=== PATIENT | female | born 1955 | race Caucasian/White ===

== ENCOUNTER 2020-06-18 13:35 | Outpatient (CLI) | payer MEDICARE, SELFPAY ==
--- NOTE | ~2020-06-18 | XR_ITS ---
XR knee LT 3V 06/18/2020 14:00 Indication: Left knee pain Procedure: 3 views left knee Comparison: No prior studies for comparison. Findings: No fracture or traumatic malalignment. No significant joint effusion. No radiopaque foreign bodies. There is mild osteoarthritis. Impression: 1: Mild osteoarthritis of the left knee. Reviewed, dictated and finalized at location A. Impression: 1: Mild osteoarthritis of the left knee.
== END 2020-06-18 13:36 | disposition home or self-care (01) ==
LOC: CHSIMG 13:37
PROVIDERS: PCP Internal Medicine; Visit Provider Internal Medicine
DX: M25.562 Pain in left knee (principal)
CPT/HCPCS: 73562

== ENCOUNTER 2020-09-29 14:20 | Outpatient (CLI) | payer MEDICARE, SELFPAY ==
[2020-09-29 14:55] LABS: SARS-CoV-2 Ag Positive (Negative)
== END 2020-09-29 14:21 | disposition home or self-care (01) ==
LOC: CHSLAB 14:23
PROVIDERS: PCP Internal Medicine; Visit Provider Internal Medicine
DX: U07.1 COVID-19 (principal)
CPT/HCPCS: 87426; C9803

== ENCOUNTER 2021-01-02 14:20 | Emergency (ER) | payer MEDICARE, SELFPAY ==
--- NOTE | ~2021-01-02 | XR_ITS ---
EXAMINATION: XR chest 2V DATE: 01/02/2021 15:41 INDICATION: Shortness of breath with exertion TECHNIQUE: PA and lateral views of the chest are obtained. COMPARISON: None available FINDINGS: There are small pleural effusions. Airspace opacities are present in the mid and lower lung zones. There is a mild interstitial pattern. Cardiomegaly is noted. There is moderate thoracic spond ylosis. No pneumothorax is identified. IMPRESSION: 1. Cardiomegaly with mild pulmonary edema. 2. Small pleural effusions. 3. Minimal bibasilar airspace opacities, consistent with atelectasis versus pneumonia. Reviewed, dictated and finalized at location A. IMPRESSION: 1. Cardiomegaly with mild pulmonary edema. 2. Small pleural effusions. 3. Minimal bibasilar airspace opacities, consistent with atelectasis versus pne umonia.
[2021-01-02 14:30] VITALS: BP 127/95; PULSE 91; RESP 18; TEMP 36.6; O2SAT 98
--- NOTE | 2021-01-02 15:01 | ECG_ITS ---
Measurements Intervals [place] Rate: 96 P: 86 MO: 157 QRS: -16 QRSD: 125 T: 85 QT: 340 QTc: 431 Interpretive Statements SINUS RHYTHM VENTRICULAR PREMATURE COMPLEX POSSIBLE LEFT ATRIAL ENLARGEMENT LEFT BUNDLE BRANCH BLOCK BASELINE ARTIFACT- I, II, III, AVR, AVL, AVF, V1-V4 ABNORMAL ECG Electronically Signed On 01-03-2021 8:04:16 CDT by Konrad Escobar D.O.
[2021-01-02 15:30] LABS: D Dimer 0.42 mg/L (0.19-0.50)
[2021-01-02 15:34] LABS: BNP 1140 pg/mL (0-100); Troponin I 7.6 ng/L (0.00-60.4)
--- NOTE | 2021-01-02 16:25 | ED.SOB ---
HPI - SOB/Dyspnea General Chief Complaint: Upper Respiratory Infection Stated Complaint: SOB Time Seen by Provider: 01/02/21 14:40 Source: patient Mode of arrival: ambulatory Limitations: no limitations History of Present Illness HPI Narrative: Patient comes in stating she has been increasingly short of breath over the past few weeks. This seems to have gotten worse over the past couple of days. She denies fever and chills. She has had a clear productive cough and has had clear nasal discharge. She had covid in September. Shortness of breath has been moderately severe and ongoing getting worse as time progress. Shortness of breath is worse after walking. She denies chest pain, and any leg sweling. MD elicited complaint: shortness of breath Onset (ago): week(s) Context: occurred during exertion Timing: intermittent Severity: moderate Exacerbating factors: movement Associated symptoms: denies other symptoms Related Data Home Medications Medication Instructions Recorded Confirmed No Home Medications 01/02/21 01/02/21 Allergies Allergy/AdvReac Type Severity Reaction Status Date / Time No Known Allergies Allergy Verified 01/02/21 16:00 Review of Systems Constitutional: Constitutional: Reports no additional constitutional complaints Eyes: Eyes: Reports no additional eye complaints ENT: Reports system reviewed and no additional complaints, except as documented Cardiovascular: Cardiovascular: Reports no additional cardiovascular complaints Respiratory: Respiratory: Reports no additional respiratory complaints Gastrointestinal: Gastrointestinal: Reports no additional gastrointestinal complaints Genitourinary: Genitourinary: Reports no additional female genitourinary complaints Musculoskeletal: Musculoskeletal: Reports no additional musculoskeletal complaints Integumentary/Breasts: Skin/Breast: Reports system reviewed and no additional complaints, except as docu Neurologic: Reports system reviewed and no additional complaints, except as documented Psychiatric: Psychiatric: Reports no additional psychiatric complaints Endocrine: Endocrine: Reports no additional endocrine complaints Hematologic/Lymphatic: Hematologic/Lymphatic: Reports no additional hematologic/lymphatic complaints Allergic/Immunologic: Allergic/Immunologic: Reports no additional allergic/immunologic complaints [facility] Past Medical History Medical History (Updated 01/02/21 @ 20:01 by Roger Lange MD) Borderline diabetes Surgical History Surgical History (Updated 01/02/21 @ 20:02 by Roger Lange MD) H/O wrist surgery H/O: hysterectomy Hx of appendectomy Hx of tonsillectomy Family History Family History (Updated 01/02/21 @ 20:03 by Roger Lange MD) Father Diabetes mellitus COPD (chronic obstructive pulmonary disease) Social History Social History (Updated 01/02/21 @ 20:04 by Roger Lange MD) Smoking status: Never smoker Alcohol intake: never Sexual Orientation (if Verbalized by the Patient): Straight or Heterosexual Exam Const: General: no acute distress Orientation/consciousness: patient oriented x3 HENMT: Head: normal to inspection Ears: external ears normal and TM's normal bilaterally General nose exam: Nasal discharge present (clear thin) Face and sinus: normal facial exam Mouth: Yes Normal oral and palatal mucosa present Throat: posterior oropharynx normal Eyes: Conjunctivae: conjunctivae normal Neck: Neck: normal visual inspection Chest: Chest palpation & inspection: normal inspection of the chest Resp: Effort & Inspection: normal respiratory effort Auscultation: clear to auscultation bilaterally Cardio: Rate: regular rate Rhythm: regular rhythm GI: GI Palp: Yes Soft to palpation (nontender) Skin: General skin exam: normal color Neuro: General: patient oriented x3 and moves all extremities Extrem: General: normal to inspection Psych: Mental Status: mental status grossly sushma
[2021-01-02 16:44] LABS: Basophils Absolute Auto 0.07 K/mm3 (0.00-0.10); Basophils Percent Auto 0.7 % (0.0-1.0); Eosinophils Absolute Auto 0.13 K/mm3 (0.02-0.50); Eosinophils Percent Auto 1.3 % (1.0-6.0); Hematocrit 40.3 % (35.0-42.0); Hemoglobin 13.1 g/dL (11.7-13.8); Immature Granulocyte Absolute 0.04 K/mm3 (0.00-0.00); Immature Granulocyte Percent A 0.4 % (0.0-0.0); Lymphocytes Absolute Auto 1.99 K/mm3 (1.10-4.50); Lymphocytes Percent Auto 19.8 % (18.0-42.0); Mean Corpuscular HGB Conc 32.5 g/dL (32.0-36.0); Mean Corpuscular Hemoglobin 30.5 pg (27.0-31.0); Mean Corpuscular Volume 93.7 fL (78.0-102.0); Mean Platelet Volume 12.2 fl (9.2-11.8); Monocytes Absolute Auto 0.76 K/mm3 (0.10-0.90); Monocytes Percent Auto 7.6 % (2.0-11.0); Neutrophils Percent Auto 70.2 % (50.0-70.0); Platelet Count Result 376 K/mm3 (150-420); Red Cell Distribution Width 13.3 % (11.6-14.4)
[2021-01-02 16:46] LABS: Anion Gap 11 mmol/L (8-16); Blood Urea Nitrogen 19 mg/dL (7-18); Carbon Dioxide 24 mmol/L (21-32); Chloride 106 mmol/L (98-108); Estimated CRCL calculation 42 ml/min; Estimated Glomerular Filt Rate 53; Glucose 104 mg/dL (70-99); Osmolality Calculated 294 mOsm/kg (285-295); Potassium 4.1 mmol/L (3.5-5.1); Sodium 141 mmol/L (136-145)
[2021-01-02 16:50] VITALS: PULSE 106
[2021-01-02] MEDS: FUROSEMIDE INJ 40 MG/4 ML VIAL IV PUSH (16:50)
[2021-01-02] MEDS: METOPROLOL TARTRATE 50 MG TAB 25 MG PO (16:50)
[2021-01-02] MEDS: lisinopriL 10 MG TABLET PO (16:52)
[2021-01-02 18:46] LABS: Troponin I 7.9 ng/L (0.00-60.4)
--- NOTE | 2021-01-02 19:05 | PC.NURSE ---
ERP SPEAKING WITH PT, PT TO TRANSFER TO [facility], AWAITING PLACEMENT
[2021-01-02] MEDS: POTASSIUM BICARBONATE 25 MEQ TABEF 50 MEQ PO (20:37)
--- NOTE | 2021-01-02 20:53 | PC.NURSE ---
CALL TO [facility], CONTINUE TO AWAIT BED PLACEMENT, SPOKE WITH MICHAEL.
--- NOTE | 2021-01-02 21:03 | PC.NURSE ---
REPORT TO ROSARIO ROBERT .
[2021-01-02 22:32] VITALS: BP 107/65; PULSE 89; RESP 20; TEMP 36.6; O2SAT 95
--- NOTE | 2021-01-03 00:29 | PC.NURSE ---
Report to [facility] for transfer. Pt.loaded c c/o
== END 2021-01-03 00:29 | disposition short-term general hospital (02) ==
PROVIDERS: Emergency Provider Emergency Medicine; PCP Internal Medicine
DX: I50.9 Heart failure, unspecified (principal)
CPT/HCPCS: 36415; 71046; 80048; 83880; 84484; 85025; 85380; 93005; 96374; 99285; A9270; J1940

== ENCOUNTER 2021-01-24 11:31 | Emergency (ER) | payer MEDICARE, SELFPAY ==
--- NOTE | ~2021-01-24 | XR_ITS ---
XR chest 1V portable DATE: 01/24/2021 12:05 INDICATION: Chest pain TECHNIQUE: Portable AP chest on 01/24/2021 1214 hours COMPARISON: . 01/02/2021 PA and lateral chest FINDINGS: Cardiomegaly. No hilar or mediastinal enlargement. No pulmonary infiltrate or consolidation , pleural effusion or pulmonary vascular congestion or pneumothorax. IMPRESSION: Cardiomegaly Reviewed, dictated and finalized at location A. IMPRESSION: Cardiomegaly
--- NOTE | 2021-01-24 11:35 | ECG_ITS ---
Measurements Intervals [place] Rate: P: DC: QRS: QRSD: T: QT: QTc: Interpretive Statements SINUS RHYTHM LEFT AXIS DEVIATION LEFT BUNDLE BRANCH BLOCK BASELINE WANDER- I, II, III, AVR, AVL, AVF, V1, V4, V6 ABNORMAL ECG Electronically Signed On 01-25-2021 12:28:08 CDT by Konrad Escobar D.O.
--- NOTE | 2021-01-24 11:41 | ED.CHESTPAIN ---
HPI - Chest Pain General Chief Complaint: Chest Pain Stated Complaint: chest pain Time Seen by Provider: 01/24/21 11:38 Source: patient Mode of arrival: ambulatory Limitations: no limitations History of Present Illness HPI narrative: 65-year-old woman comes in today complaining of sharp chest pain her upper chest that started about 10 15 minutes prior to arrival. The pain radiates through to her back. She was at rest. The pain was 10/10 but now is 7/10. She denies prior similar symptoms. She states she is currently under the care of Dr. Zuleta for heart failure and is wearing a monitor. She states that she has had no nausea, vomiting, dizziness, lightheadedness, shortness of breath, sweating, vomiting or loss consciousness. She denies any recent illness and has had no cough or cold symptoms, abdominal pain, dysuria or hematuria, weakness, headaches or neck pain. MD complaint: chest pain Onset (ago): minute(s) (15) Timing of current episode: constant and other ( improving) Prior episodes: No Onset: during rest Pain location: substernal Pain radiation: back Severity: moderate Related Data Home Medications Medication Instructions Recorded Confirmed amiodarone 200 mg PO DAILY 01/24/21 01/24/21 atorvastatin 10 mg PO DAILY 01/24/21 01/24/21 carvedilol 3.125 mg PO BID 01/24/21 01/24/21 furosemide 20 mg PO DAILY 01/24/21 01/24/21 spironolactone 25 mg PO DAILY 01/24/21 01/24/21 Allergies Allergy/AdvReac Type Severity Reaction Status Date / Time No Known Allergies Allergy Verified 01/02/21 16:00 Review of Systems Review of Systems: All systems reviewed & are unremarkable except as noted in HPI and below Constitutional: Constitutional: Denies body ache(s) and Denies chills Comments: No fever ENT: Denies nasal congestion, Denies nasal discharge and Denies sore throat Cardiovascular: Cardiovascular: Reports chest pain at rest, Denies diaphoresis, Denies rapid heart rate, Denies leg edema, Denies lightheadedness, Denies radiating jaw, neck or arm pain and Denies slow heart rate Respiratory: Respiratory: Denies cough, Denies pain with cough, Denies dyspnea, Denies dyspnea on exertion and Denies wheezing Gastrointestinal: Gastrointestinal: Denies abdominal pain, Denies diarrhea, Denies nausea and Denies vomiting Genitourinary: Genitourinary: Denies hematuria, Denies nocturia and Denies dysuria Musculoskeletal: Musculoskeletal: Denies arthralgias and Denies joint swelling Integumentary/Breasts: Skin/Breast: Denies erythema, Denies rash and Denies wounds Neurologic: Denies vertigo, Denies dizziness, Denies syncope and Denies headache(s) Hematologic/Lymphatic: Hematologic/Lymphatic: Denies easy bleeding and Denies easy bruising Allergic/Immunologic: Allergic/Immunologic: Denies throat swelling and Denies wheezing PMFSH Past Medical History Medical History (Updated 01/24/21 @ 12:31 by Subhash De La Rosa MD) Borderline diabetes CHF (congestive heart failure) Surgical History Surgical History (Updated 01/02/21 @ 20:02 by Roger Lange MD) H/O wrist surgery H/O: hysterectomy Hx of appendectomy Hx of tonsillectomy Family History Family History (Updated 01/02/21 @ 20:03 by Roger Lange MD) Father Diabetes mellitus COPD (chronic obstructive pulmonary disease) Social History Social History Smoking status: Never smoker Alcohol intake: never Gender identity (if verbalized by the patient): Female Exam Const: General: healthy appearing, acute distress mild and anxious Nutritional Appearance: overweight Orientation/consciousness: patient oriented x3 Limitations: no limitations HENMT: Head: normal to inspection Ears: external ears normal, TM's normal bilaterally and EAC's normal Mouth: Yes moist mucous membranes Throat: posterior oropharynx normal Eyes: Pupils: Equal, round and reactive pupils present EOM: EOMs intact bilaterally Resp: Ef
[2021-01-24 11:57] LABS: Basophils Absolute Auto 0.06 K/mm3 (0.00-0.10); Basophils Percent Auto 0.8 % (0.0-1.0); Eosinophils Absolute Auto 0.12 K/mm3 (0.02-0.50); Eosinophils Percent Auto 1.5 % (1.0-6.0); Hematocrit 41.5 % (35.0-42.0); Hemoglobin 13.3 g/dL (11.7-13.8); Immature Granulocyte Absolute 0.02 K/mm3 (0.00-0.00); Immature Granulocyte Percent A 0.3 % (0.0-0.0); Lymphocytes Absolute Auto 1.67 K/mm3 (1.10-4.50); Lymphocytes Percent Auto 21.4 % (18.0-42.0); Mean Corpuscular Hemoglobin 30.1 pg (27.0-31.0); Mean Corpuscular Volume 93.9 fL (78.0-102.0); Monocytes Absolute Auto 0.47 K/mm3 (0.10-0.90); Neutrophils Absolute Auto 5.5 K/mm3 (1.7-7.2); Platelet Count Result 325 K/mm3 (150-420); Red Blood Count 4.42 M/mm3 (4.20-5.40); Red Cell Distribution Width 12.6 % (11.6-14.4); White Blood Count 7.8 K/mm3 (4.8-10.8)
[2021-01-24 12:12] LABS: D Dimer 0.31 mg/L (0.19-0.50); INR 1.1; Prothrombin Time 11.4 Seconds (9.50-12.10)
[2021-01-24 12:18] LABS: Alanine Aminotransferase 21 U/L (14-59); Albumin Level 3.5 g/dL (3.4-5.0); Alkaline Phosphatase 84 U/L (46-116); Anion Gap 8 mmol/L (8-16); Aspartate Amino Transferase 13 U/L (15-37); Bilirubin,Total 0.4 mg/dL (0.00-1.00); Blood Urea Nitrogen 16 mg/dL (7-18); Calcium 9.1 mg/dL (8.5-10.1); Carbon Dioxide 28 mmol/L (21-32); Chloride 103 mmol/L (98-108); Estimated Glomerular Filt Rate 58; Glucose 116 mg/dL (70-99); NT Pro B Type Natriuretic Pept 979 pg/mL (0-125); Osmolality Calculated 290 mOsm/kg (285-295); Potassium 4.2 mmol/L (3.5-5.1); Sodium 139 mmol/L (136-145); Total Protein 7.2 g/dL (6.4-8.2); Troponin I 5.4 ng/L (0.00-60.4)
[2021-01-24] MEDS: ASPIRIN 81 MG CHEWABLE TABLET 243 MG PO (12:45)
[2021-01-24] MEDS: MAG HYDROX/ALUMINUM HYD/SIMETH 30 ML, PHENobarb/HYOSCY/ATROPINE/SCOP 32.4 MG, LIDOCAINE... PO (12:45)
[2021-01-24 12:46] VITALS: BP 111/63; PULSE 77; RESP 20; TEMP 36.7; O2SAT 98
--- NOTE | 2021-01-24 12:57 | PC.NURSE ---
called place to [facility] ripening room operator Dr Zuleta was paged at 12:54 for consult)
[2021-01-24 14:49] LABS: Troponin I 5.6 ng/L (0.00-60.4)
[2021-01-24 15:02] VITALS: BP 95/59; PULSE 66; RESP 20; TEMP 36.7; O2SAT 98
== END 2021-01-24 15:04 | disposition home or self-care (01) ==
PROVIDERS: Emergency Provider Emergency Medicine; PCP Internal Medicine
DX: R07.89 Other chest pain (principal); I50.9 Heart failure, unspecified
CPT/HCPCS: 36415; 71045; 80053; 83880; 84484; 85025; 85380; 85610; 85730; 93005; 99283; 99284; A9270